=== PATIENT | male | born 1970 | race Caucasian/White ===

== ENCOUNTER → 2018-07-30 | Outpatient (CLI) | payer BC ==
[2018-07-30 13:48] LABS: ALT 53 U/L (21-72); AST 29 U/L (17-59); Albumin 4.5 g/dL (3.5-5.0); Alkaline Phosphatase 76 U/L (38-126); Anion Gap 8 mmol/L; Blood Urea Nitrogen 13 mg/dL (9-20); Calcium 10.8 mg/dL (8.4-10.2); Carbon Dioxide 27 mmol/L (22-30); Chloride 106 mmol/L (98-107); Glucose 95 mg/dL (74-99); Potassium 4.7 mmol/L (3.5-5.1); Sodium 141 mmol/L (137-145); Total Protein 7.4 g/dL (6.3-8.2)
--- NOTE | 2018-07-30 14:23 | US ---
EXAMINATION TYPE: US thyroid st tissue head/neck DATE OF EXAM: 07/30/2018 COMPARISON: NONE CLINICAL HISTORY: E21.0 hyperparathyroidism. GLAND SIZE: Right Lobe: 5.8 x 2.1 x 2.7 cm Overall Parenchyma: heterogenous Left Lobe: 5.5 x 1.8 x 1.8 cm Overall Parenchyma: heterogeneous Isthmus Thickness: 0.3 cm NODULES RIGHT: # of nodules measured on right: 3 1. 2.1 X 1.4 x 1.7 cm hypoechoic solid nodule at the mid pole with well-defined margins. This nodul e is wider than tall and shows intranodular vascularity. Prior size: no previous 2. 1.3 X 0.7 x 1.2 cm hypoechoic mixed nodule at the mid pole with well-defined margins. This nodule is wider than tall and shows intranodular vascularity. Prior size: no previous 3. 1.3 X 0.7 x 1.1 cm hypoechoic mixed nodule at the medial mid pole with well-defined margins. This nodule is wider than tall and shows intranodular vascularity. Prior size: no previous LEFT: # of nodules measured on left: 1 1. 1.4 X 1.0 x 0.9 cm hypoechoic mixed nodule at the mid pole with well-defined margins. This nodul e is taller than wide and shows intranodular vascularity. Prior size: no previous ISTHMUS: # of nodules measured in the isthmus: 0 Bilateral neck scanned, no evidence of lymphadenopathy. Enlarged heterogeneous gland with bilateral nodules seen, largest described above. IMPRESSION: 1. Thyromegaly with findings suggestive of thyroiditis. 2. There are multinodular changes with the largest seen within the right lobe measuring 2.1 cm. All n odules measure greater than 1 cm.
[2018-07-30 19:02] LABS: Parathyroid Hormone Intact 117.4 pg/mL (14.0-72.0)
[2018-07-30 20:15] LABS: Calcium 24 Hour,Urine 498.8 mg/24Hr (100.0-300.0)
== END | disposition home or self-care (01) ==
LOC: RADUSWWP 12:00
PROVIDERS: ATTEND Internal Medicine Endocrinology, Diabetes & Metabolism
DX: E01.0 Iodine-deficiency related diffuse (endemic) goiter (principal); E21.0 Primary hyperparathyroidism
CPT/HCPCS: 36415; 76536; 80053; 81050; 82306; 82340; 83970; 84146

== ENCOUNTER → 2018-08-15 | Outpatient (CLI) | payer BC ==
[2018-08-15 19:36] LABS: Vitamin D 25 Hydroxy 16.6 ng/mL (30.0-100.0)
[2018-08-15 19:44] LABS: Albumin 4.7 g/dL (3.80-4.90); Albumin/Globulin Ratio 1.88 (1.60-3.17); Anion Gap 7.8 mmol/L (4.00-12.00); Calcium 10.8 mg/dL (8.7-10.3); Carbon Dioxide 28.2 mmol/L (21.6-31.8); Globulin 2.5 g/dL (1.6-3.3); Potassium 4.5 mmol/L (3.5-5.5); Total Bilirubin 0.5 mg/dL (0.3-1.2); Total Protein 7.2 g/dL (6.2-8.2)
[2018-08-15 20:00] LABS: Parathyroid Hormone Intact 164.6 pg/mL (14.0-72.0)
== END | disposition home or self-care (01) ==
LOC: LABWHC1 14:46
PROVIDERS: ATTEND Internal Medicine Endocrinology, Diabetes & Metabolism
DX: E21.0 Primary hyperparathyroidism (principal); E04.2 Nontoxic multinodular goiter
CPT/HCPCS: 36415; 80053; 82306; 83970; 84439; 84443

== ENCOUNTER → 2020-09-01 | Outpatient (CLI) | payer BC ==
--- NOTE | 2020-09-01 10:06 | US ---
EXAMINATION TYPE: US thyroid st tissue head/neck DATE OF EXAM: 09/01/2020 COMPARISON: Ultrasound thyroid July 30, 2018 CLINICAL HISTORY: E04.2 MULTINODULAR GOITER. Follow up thyroid nodules. Hx bx with benign results. Not on thyroid medicine. GLAND SIZE: Right Lobe: 4.6 x 2.3 x 2.0 cm Overall Parenchyma: heterogenous Left Lobe: 4.6 x 1.8 x 1.9 cm Overall Parenchyma: heterogeneous Isthmus Thickness: 0.4 cm NODULES RIGHT: # of nodules measured on right: 3 1. 1.2 X 0.9 x 0.6 cm solid or almost completely solid, Mid hypoechoic nodule, which is wider than tall, with smooth margins, without echogenic foci. Prior size: 2.1 x 1.4 x 1.7 cm 2. 0.7 X 0.6 x 0.4 cm mid lateral solid or almost completely solid, hypoechoic nodule, which is wid er than tall, with smooth margins, without echogenic foci. Prior size: 1.3 x 0.7 x 1.2 cm 3. 1.2 X 1.0 x 0.7 cm solid or almost completely solid, Medial mid hypoechoic nodule, which is wid er than tall, with smooth margins, without echogenic foci. Prior size: 1.3 x 0.7 x 1.1 cm LEFT: # of nodules measured on left: 2 1. 0.8 X 0.8 x 0.5 cm solid or almost completely solid, hypoechoic nodule, which is wider than tall , with smooth margins, without echogenic foci. Prior size: Not previously seen 2. 1.2 X 0.8 x 0.9 cm solid or almost completely solid, hypoechoic nodule, which is taller than wid e, with smooth margins, without echogenic foci. Prior size: 1.4 x 1.0 x 0.9 cm ISTHMUS: # of nodules measured in the isthmus: 0 Bilateral neck scanned, no evidence of lymphadenopathy. Stable heterogeneous thyroid measuring upper limits of normal with scattered bilateral nodules. No co ncerning enlarging or greater than 1 cm new nodules clearly seen. IMPRESSION: Findings consistent with multinodular goiter redemonstrated.
== END | disposition home or self-care (01) ==
LOC: RADUSWWP 09:22
PROVIDERS: ATTEND Family Medicine
DX: E04.2 Nontoxic multinodular goiter (principal)
CPT/HCPCS: 76536

== ENCOUNTER → 2024-01-23 | Outpatient (CLI) | payer BC ==
--- NOTE | 2024-01-23 21:14 | US ---
EXAMINATION TYPE: US thyroid st tissue head/neck DATE OF EXAM: 01/23/2024 COMPARISON: US CLINICAL INDICATION: Male, 53 years old with history of E04.2 NONTOXIC MULTINODULAR GOITER; F/U GLAND SIZE: Right Lobe: 4.9 x 1.6 x 1.9 cm Overall Parenchyma: heterogeneous Left Lobe: 4.9 x 1.8 x 1.7 cm Overall Parenchyma: heterogeneous Isthmus Thickness: 0.3 cm NODULES RIGHT: # of nodules measured on right: 2 1. 1.0 X 0.7 x 0.9 cm, upper, solid or almost completely solid, hypoechoic nodule, which is wider t ceballos tall, with smooth margins, without echogenic foci. Prior size: 1.2 x 0.6 x 0.9 cm 2. 1.1 X 0.7 x 1.1 cm, mid medial, solid or almost completely solid, hypoechoic nodule, which is wi sulema than tall, with smooth margins, without echogenic foci. Prior size: 1.2 x 0.7 x 1.0 cm Other sub-centimeter nodules scattered throughout lobe, largest two measured LEFT: # of nodules measured on left: 2 1. 0.9 X 0.6 x 0.8 cm, mid, solid or almost completely solid, hypoechoic nodule, which is wider josephine n tall, with smooth margins, without echogenic foci. Prior size: 0.8 x 0.5 x 0.8 cm 2. 1.2 X 1.0 x 0.6 cm, mid lateral, solid or almost completely solid, hypoechoic nodule, which is wider than tall, with smooth margins, without echogenic foci. TR 4 Prior size: 1.2 x 0.9 x 0.8 cm Other sub-centimeter nodules scattered throughout, largest two measured ISTHMUS: # of nodules measured in the isthmus: 0 Bilateral neck scanned, no evidence of lymphadenopathy. Stable nodules bilaterally. IMPRESSION: Moderately suspicious nodule right lobe thyroid. Follow-up exam in one year is recommended. 2017 ACR TI-RADS LEVEL: *Highest TI-RADS level nodule reported
== END | disposition home or self-care (01) ==
LOC: RADUSWWP 16:04
PROVIDERS: ATTEND Family Medicine
DX: E04.2 Nontoxic multinodular goiter (principal); R22.0 Localized swelling, mass and lump, head
CPT/HCPCS: 76536